=== PATIENT | male | born 1975 | race Caucasian/White ===

== ENCOUNTER → 2016-08-29 | Outpatient (CLI) | payer OTHER ==
--- NOTE | 2016-08-30 10:46 | DI ---
Indication: [email or web address]: DX TESTING Procedure: CERVICAL SPINE 4 OR 5 VIEWS: Encounter: Initial Comparison: None Technique: Five views of the cervical spine were obtained. Findings: Bony mineralization is normal. There is mild straightening of the normal cervical lordosis. The vertebral bodies otherwise maintain normal height and alignment without evidence of acute fracture or significant spondylolisthesis. The lateral masses of C1 and C2 are normally aligned on the open-mouth odontoid view. Mild degenerative disc disease and uncovertebral hypertrophy without resulting neural foraminal narrowing appreciated on the oblique radiographs. No prevertebral soft tissue swelling. The visualized airway appears widely patent. The visualized lung apices are clear. Impression: Mild degenerative spondylosis without resulting neural foraminal narrowing appreciated radiographically. .
--- NOTE | 2016-08-30 10:47 | DI ---
Indication: [email or web address]: DX TESTING Procedure: LUMBAR SPINE 2-3 VIEWS: Encounter: Initial Comparison: None Technique: Three views of the lumbar spine were obtained. Findings: Bony mineralization is normal. Five nonrib-bearing lumbar-type vertebral bodies are identified. The vertebral bodies maintain normal height and alignment without evidence of acute compression fracture or significant spondylolisthesis. Suggestion of early degenerative disc disease/disc space height loss at L5-S1. The remaining intervertebral disc spaces are maintained. The visualized bowel gas pattern is unremarkable. Impression: Suggestion of early degenerative disc disease/disc space height loss at L5-S1 with no acute osseous abnormality appreciated radiographically. .
== END ==
LOC: IMA 17:23
DX: Z02.9 Encounter for administrative examinations, unspecified (principal)